=== PATIENT | male | born 1950 | race Caucasian/White ===

== ENCOUNTER 2017-09-28 09:56 | Inpatient (IN) | payer MEDICARE ==
[~2017-09-28 09:56] MED LIST: Iopamidol 370 76% 100 ML VIAL ONE
--- NOTE | 2017-09-28 10:34 | RAD ---
PA AND LATERAL CHEST: Date: 09/28/17 HISTORY: Chest pain and left arm pain. COMPARISON: None available. FINDINGS: The cardiac silhouette and pulmonary vasculature are within normal limits. There is a very tiny nodul ar density seen overlying the left upper lobe, which overlies the anterior left second rib. Lungs are otherwise clear. Osseous structures are intact. IMPRESSION: 1. Very tiny nodular density overlying the left upper lobe. This could be related to focal area of s carring or superimposition of structures. However, follow-up chest x-ray in 3 months is recommended. 2. No acute cardiopulmonary process. POS: [facility]
[2017-09-28 10:44] LABS: #Basophils 0.1 thou/uL (0.0-0.2); #Eosinphils 0.4 thou/uL (0.0-0.7); #Lymphocytes 1.5 thou/uL (1.20-3.40); #Monocytes 0.9 thou/uL (0.11-0.59); %Basophils 0.8 % (0.0-1.0); %Eosinophils 4.4 % (0.0-10.0); %Lymphocytes 15.2 % (21.0-51.0); %Monocytes 8.8 % (0.0-10.0); %Neutrophils 70.8 % (42.0-75.0); Hemoglobin 15.6 g/dL (14.0-18.0); Mean Corpuscular HGB CONC 33.8 g/dL (32.0-36.0); Mean Corpuscular Hemoglobin 33.4 pg (27.0-31.0); Mean Corpuscular Volume 98.8 fl (80.0-94.0); Mean Platelet Volume 7.5 fL (7.4-10.4); Platelet Count 252 thou/uL (130-400); RBC Distribution Width 11.5 % (11.5-14.5); Red Blood Cell (RBC) Count 4.67 mill/uL (4.70-6.10); White Blood Cell (WBC) Count 9.9 thou/uL (4.8-10.8)
[2017-09-28 10:59] LABS: ALT (SGPT) 16 U/L (8-55); AST (SGOT) 17 U/L (5-34); Albumin 4.2 g/dL (3.4-4.8); Alkaline Phosphatase 67 U/L (40-150); Anion Gap 12 mmol/L (10-20); BUN (Urea Nitrogen) 12 mg/dL (8.4-25.7); Bilirubin, Total 0.3 mg/dL (0.2-1.2); CK (CPK) 245 U/L (30-200); Calc. Creatinine Clearance 0 mL/min (70-130); Calcium 9.7 mg/dL (7.8-10.44); Carbon Dioxide 24 mmol/L (23-31); Chloride 108 mmol/L (98-107); Estimated GFR-MDRD 68; Globulin 3.1 g/dL (2.4-3.5); Glucose 148 mg/dL (80-115); Potassium 4.4 mmol/L (3.5-5.1); Protein, Total 7.3 g/dL (5.8-8.1); Sodium 140 mmol/L (136-145)
[2017-09-28 11:09] LABS: CKMB 4.6 ng/mL (0-6.6); Troponin I 0.186 ng/mL (< 0.028)
[2017-09-28 11:41] LABS: Magnesium 2.4 mg/dL (1.6-2.6)
[2017-09-28] MEDS ORDERED: Enoxaparin Sodium 100 MG/ML SYRINGE ONE (12:52)
[2017-09-28] MEDS ORDERED: Nitroglycerin 2% Ointment 1 INCH/1 GM Packet TOP PRN (13:24)
[2017-09-28] MEDS ORDERED: Acetaminophen 325 MG TAB PO PRN (13:24)
[2017-09-28] MEDS ORDERED: Dextrose 50% Abboject 50 ML SYRINGE SLOW IVP PRN (13:26)
[2017-09-28] MEDS ORDERED: HumaLOG 300 UNITS/3 ML VIAL SC PRN (13:26)
[2017-09-28] MEDS ORDERED: Dextrose 5% in Water 1,000 ML IV PRN (13:26)
[2017-09-28 14:26] LABS: CKMB 12.2 ng/mL (0-6.6); Troponin I 1.636 ng/mL (< 0.028)
[2017-09-28] MEDS ORDERED: Nitroglycerin 2% Ointment 1 INCH/1 GM Packet TOP SCH (15:45)
--- NOTE | 2017-09-28 15:48 | HP ---
CHIEF COMPLAINT: Left arm pain. HISTORY OF PRESENT ILLNESS: Patient is a very pleasant 67-year-old male with a history of diabetes w ho presents to the hospital with complaints of left arm pain. Patient states that he woke up this mo rning and had two sips of coffee and started having significant pain on his left arm. The patient st ates that normally he gets aches and pains; however, this pain was very, very different. The patient denies any chest discomfort; however, just felt a little burning, like patient just complained of so me burning-like sensation to the back of throat. Patient states that he did feel a little lightheade d this morning. The patient states that he went to work and just did not feel well. Normally, he do es not go to the doctor. The patient did call his PCP and went to see the PCP. When he was examined by the PCP, she referred him to the ER for further evaluation. The patient also states that he did not sleep well last night because he did have a project that was due today. The patient has never hilliard d a stress test and he has never had a cardiac catheterization. Patient states that he did have an e vent monitor that was placed on him few years back. PAST MEDICAL HISTORY: History of diabetes type 2. PAST SURGICAL HISTORY: Denies any surgical history. FAMILY HISTORY: Mother has hypertension and alive. Father had his first heart attack at the age of 46. He at the age of 77 and had also had a stroke. SOCIAL HISTORY: The patient smokes cigars small about 2-3 daily for the past 10 years. Denies any a lcohol or drug use. ALLERGIES: He has got no known drug allergies. MEDICATIONS: The patient takes Lantus 50 units q.p.m., atorvastatin unknown dose daily and lisinopri l for renal protection. REVIEW OF SYSTEMS: The following complete review of systems was negative, unless otherwise mentioned in the HPI or below: Constitutional: Weight loss or gain, ability to conduct usual activities. Skin: Rash, itching. Eyes: Double vision, pain. ENT/Mouth: Nose bleeding, neck stiffness, pain, tenderness. Cardiovascular: Palpitations, dyspnea on exertion, orthopnea. Respiratory: Shortness of breath, wheezing, cough, hemoptysis, fever or night sweats. Gastrointestinal: Poor appetite, abdominal pain, heartburn, nausea, vomiting, constipation, or diarr hea. Genitourinary: Urgency, frequency, dysuria, nocturia. Musculoskeletal: Pain, swelling. Neurologic/Psychiatric: Anxiety, depression. Allergy/Immunologic: Skin rash, bleeding tendency. All negative except for the ones mentioned in the HPI. LABORATORY DATA AND IMAGING DATA: WBCs of 9.9, hemoglobin of 15.6, hematocrit of 46.1, platelets of 252. Chemistry: Sodium of 140, potassium of 4.4, bicarbonate of 24, BUN of 12, creatinine 1.08. Hi s initial troponin was 0.186. No significant EKG changes. His second troponin went up to 1.63. EKG is still pending right now. Chest x-ray indicated very tiny nodular density over the left upper lob e. However, no other cardiopulmonary process noted. ASSESSMENT AND PLAN: The patient is a very pleasant 67-year-old male who comes to the hospital with complaints of left-sided arm pain. 1. Dqv-CN-ehqmdiu elevation myocardial infarction. The patient does have left-sided arm pain with e levated troponins. We will start patient on aspirin and also Lovenox 1 mg/kg b.i.d., I have already spoken with Dr. Kruse who recommended that if his troponins were to increase, which they did to consul t them for further evaluation. Patient currently does not have a nitropatch on. We will make sure t he patient gets his nitropatch on today. We will check a lipid level in the morning. We will check hemoglobin A1c. The patient has risk factors which including male, age, diabetes, and family history . 2. Diabetes. I will continue half dose of patient's home insulin and currently the patient is n.p.o . 3. Deep venous thrombosis prophylaxis. The patient is already on Lovenox.
[2017-09-28] MEDS ORDERED: Lidocaine 2% Viscous Solution 10 ML, Aluminum & Magnesium Hydroxide 30 ML SSW SCH (16:30)
--- NOTE | 2017-09-28 16:49 | EKG ---
Test Reason : Blood Pressure : / mmHG Vent. Rate : 075 BPM Atrial Rate : 075 BPM P-R Int : 200 ms QRS Dur : 104 ms QT Int : 362 ms P-R-T Axes : 020 033 082 degrees QTc Int : 404 ms Normal sinus rhythm Nonspecific T wave abnormality Abnormal ECG Confirmed by DANNY CRUMP ([id number]) on 09/28/2017 4:49:26 PM Referred By: SHIKHA Confirmed By:DANNY CRUMP
[2017-09-28] MEDS ORDERED: Communication Order-Pharmacy FS SCH (17:00)
[2017-09-28] MEDS ORDERED: Verapamil 5 MG/2 ML VIAL ONE (18:19)
[2017-09-28] MEDS ORDERED: Nitroglycerin 100MG/250ML BOT 250 ML ONE (18:19)
[2017-09-28] MEDS ORDERED: Heparin 10,000 UNITS/1 ML VIAL ONE (18:19)
--- NOTE | 2017-09-28 18:21 | CON ---
DATE OF CONSULTATION: 09/28/2017 INDICATION FOR CONSULTATION: A 67-year-old gentleman who presented with a mgy-XT-pnsijtr-elevation m yocardial infarction. HISTORY OF PRESENT ILLNESS: This is a 67-year-old gentleman who has history of hypertension and diab etes presented to the emergency room after developing arm pain this morning and also burning chest pa in with throat pain, which was burning in nature. The pain at worse was 6/10 at home in the left arm . It is now down to 1/10. His enzymes were abnormal, which shows a troponin I increased from 0.186 to 1.6 with an MB of 4.6, increasing up to 12.2 compatible with a gew-TJ-usrnspg elevation myocardial infarction. He also had associated mild nausea and diaphoresis. The third set of cardiac enzymes i s still pending. He also complained of some mild nausea as well as the diaphoresis when he had the p ain this morning. He has undergone echocardiogram, which shows an ejection fraction of 50% to 55% wi th mild tricuspid valve regurgitation and trace mitral valve regurgitation. Otherwise, everything ap pears to be within normal limits except there was some hypokinesis of the apex. PAST MEDICAL HISTORY: Significant for diabetes, hypercholesterolemia, and hypertension. SOCIAL HISTORY: He is . He has one son with no heart disease. He smokes cigars on a daily basis, which he inhales. He has rare alcohol use. 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 FAMILY HISTORY: His mother had hypertension. Father had heart disease and also had a CVA and a t a relatively young age comparatively speaking, and I believe in his 70s. ALLERGIES: None. MEDICATIONS: Insulin, lisinopril at home. He has also been on statin medications. In the emergency room, he was given Lovenox as well as aspirin. REVIEW OF SYSTEMS: A 12-point review of systems is unremarkable except for what is stated in the his tory of present illness and dry eyes. PHYSICAL EXAMINATION: GENERAL: Reveals a well-developed, well-nourished gentleman who is in no acute distress at this time . He is alert and oriented. VITAL SIGNS: Blood pressure is 142/68, heart rate is 74 and regular, respiratory rate is 18. He is afebrile. O2 saturation is 97%. HEENT: Reveals the head to be normocephalic and atraumatic. NECK: Carotid pulses are present. There were no bruits. No JVD. The thyroid did not appear to be enlarged. Oral mucosa was pink and moist. CHEST: Clear to auscultation without rales, rhonchi, or wheezing. CARDIOVASCULAR: Reveals a regular rate and rhythm at this time with a normal S1 and S2. There were no significant murmurs, heaves, thrills, bruits, or rubs. ABDOMEN: Soft and nontender with positive bowel sounds. EXTREMITIES: Showed no clubbing, cyanosis, or edema. Pedal pulses are present. Popliteal pulses ar e present. Femoral pulses are present as well as radial pulses. NEUROLOGIC: Appears to be intact with no evidence of gross focal motor deficits. He has normal stre ngth and normal tone. Neurologically, he is intact otherwise. SKIN: Warm and dry. PSYCHIATRIC: Psychosocially, he is intact without any indication of any abnormalities. EKG shows a normal sinus rhythm with no acute changes. Chest x-ray shows a very tiny left upper lobe increased density, but no acute changes were noted. IMPRESSION: 1. Whu-NB-fuqqfpk-elevation myocardial infarction. This gentleman has recently been given Lovenox. He will continue on this medication. Tomorrow morning, he will undergo cardiac catheterization unle ss he becomes more urgent tonight and we will continue to monitor the enzymes. If they continue to t rend upwards, I will suggest earlier cardiac catheterization. We will try to do a radial approach si nce he has recently had Lovenox. 2. Hypertension. He will need to resume his lisinopril and perhaps start beta blockers. He has hyp ercholesterolemia. We will continue his medications, at least on the statin medication. We will swi tch him to Lipitor while he is in the hospital. I have explained the procedure for the cardiac desire terization, the indication, and the procedure to include bleeding; infection; possibility of myocardi al infarction, cerebrovascular accident, renal insufficiency, allergic contrast reaction, and even th e possibility of . He understands and again as noted, we will plan for cardiac catheterization either later today or tomorrow.
[2017-09-28] MEDS ORDERED: Aggrastat 12.5 MG/250 ML 250 ML ONE (18:57)
[2017-09-28] MEDS ORDERED: Aggrastat 12.5 MG/250 ML 250 ML IVPB SCH ×2 (19:15→19:26)
[2017-09-28] MEDS ORDERED: Nitroglycerin 0.4 MG TAB (25 Tab Bottle) SL PRN (19:26)
[2017-09-28] MEDS ORDERED: Sodium Chloride 0.9% 200 ML IV SCH (19:26)
[2017-09-28] MEDS ORDERED: Acetaminophen/Codeine 30-300mg Tablet PO PRN ×2 (19:26)
[2017-09-28] MEDS ORDERED: traMADol HCl 50 MG TAB PO PRN (19:26)
[2017-09-28 20:09] LABS: Hemoglobin 14.9 g/dL (14.0-18.0); Platelet Count 275 thou/uL (130-400)
[2017-09-28] MEDS ORDERED: Communication Order-Pharmacy FS ONE (20:38)
[2017-09-28] MEDS ORDERED: Atorvastatin Calcium 40 MG TAB PO SCH (21:00)
[2017-09-28] MEDS ORDERED: Enoxaparin Sodium 100 MG/ML SYRINGE SC SCH (21:00)
[2017-09-28] MEDS ORDERED: INSULIN DETEMIR SC SCH (21:00)
[2017-09-28 21:23] LABS: Hemoglobin A1c 6.6 % (4.0-6.0); INR-International Normal Ratio 1.1; PTT 41.5 SEC (22.9-36.1); Prothrombin Time 14.2 SEC (12.0-14.7)
--- NOTE | 2017-09-28 21:44 | CON ---
DATE OF CONSULTATION: 09/28/2017 REASON FOR CONSULTATION: Evaluate the patient for coronary artery bypass grafting. HISTORY OF PRESENT ILLNESS: Mr. Dixon is a 67-year-old gentleman who was admitted and seen in with chest pain and non-ST elevation myocardial infarction. He has gone to cardiac catheterization reveal ing severe 3-vessel disease. Potential bypassable targets including LAD, diagonal, OM1, OM3 and PDA. On ventriculogram, he has an ejection fraction of approximately 60%. Peak troponin has been 6.1. Peak CK-MB is 12.2. He is currently resting comfortably, chest pain free with no drips on the teleme try unit. PAST MEDICAL HISTORY: 1. Diabetes mellitus - insulin dependent for the last year and half. 2. Hypercholesterolemia. 3. Hypertension. PAST SURGICAL HISTORY: None. SOCIAL HISTORY: He is . He is here with his sister. He smokes cigarettes and cigars on a d aily basis. He rarely uses alcohol. 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 FAMILY HISTORY: Significant for coronary artery disease, cerebrovascular accident, and hypertension. ALLERGIES: None. CURRENT MEDICATIONS: 1. Insulin. 2. Lisinopril. 3. Statin. REVIEW OF SYSTEMS: Ten point review of systems performed and is negative except as above. PHYSICAL EXAMINATION: GENERAL: Well-developed, well-nourished man, resting comfortably in bed. VITAL SIGNS: Height 6 foot 2 inches, weight 211 pounds, BSA is 2.24, temperature is 98.0, pulse is 7 4 and regular, blood pressure is 142/68. HEENT: Sclerae nonicteric. Pupils equal, round bilaterally. NECK: Supple. He has no carotid bruits. CHEST: Clear bilaterally. HEART: Rhythm is regular. ABDOMEN: Soft and nontender. No masses. EXTREMITIES: No cyanosis, clubbing or edema. VASCULAR: Palpable carotid, radial, femoral, dorsalis pedis pulses bilaterally. VENOUS: There are no venous varicosities or venous stasis changes. LYMPHATICS: No lymphedema or lymphadenopathy. LABORATORY DATA: Potassium 4.4, creatinine is 1.08, hemoglobin 14.9, platelet count is 275,000. ASSESSMENT AND PLAN: This is a 67-year-old gentleman with severe 3-vessel disease. Risks, benefits, and options of coronary artery bypass grafting have been discussed with him. He is agreeable to pro ceed tomorrow with coronary bypass grafting.
[2017-09-28] MEDS: Famotidine 40 MG/4 ML VIAL SLOW IVP SCH (21:54)
[2017-09-29] MEDS ORDERED: Dextrose 5 % And 0.9 % NaCl 1,000 ML IV SCH
[2017-09-29 01:26] LABS: Hemoglobin 13.7 g/dL (14.0-18.0); Platelet Count 250 thou/uL (130-400)
[2017-09-29] MEDS ORDERED: CEFAZOLIN/Water 2 GM/20 ML SYRINGE SLOW IVP SCH (03:30)
[2017-09-29 06:15] LABS: #Basophils 0.1 thou/uL (0.0-0.2); #Eosinphils 0.5 thou/uL (0.0-0.7); #Lymphocytes 2.7 thou/uL (1.20-3.40); %Basophils 0.6 % (0.0-1.0); %Eosinophils 4.6 % (0.0-10.0); %Lymphocytes 26.5 % (21.0-51.0); %Monocytes 9.4 % (0.0-10.0); %Neutrophils 58.9 % (42.0-75.0); Hemoglobin 13.9 g/dL (14.0-18.0); Mean Corpuscular HGB CONC 35.4 g/dL (32.0-36.0); Mean Corpuscular Hemoglobin 34.3 pg (27.0-31.0); Mean Corpuscular Volume 96.8 fl (80.0-94.0); Mean Platelet Volume 6.7 fL (7.4-10.4); Platelet Count 236 thou/uL (130-400); RBC Distribution Width 11.5 % (11.5-14.5); Red Blood Cell (RBC) Count 4.07 mill/uL (4.70-6.10); White Blood Cell (WBC) Count 10.1 thou/uL (4.8-10.8)
[2017-09-29 06:40] LABS: Anion Gap 7 mmol/L (10-20); BUN (Urea Nitrogen) 11 mg/dL (8.4-25.7); Calc. Creatinine Clearance 98 mL/min (70-130); Calcium 8.2 mg/dL (7.8-10.44); Carbon Dioxide 26 mmol/L (23-31); Chloride 110 mmol/L (98-107); Estimated GFR-MDRD 75; Glucose 145 mg/dL (80-115); Potassium 4.4 mmol/L (3.5-5.1); Sodium 139 mmol/L (136-145)
[2017-09-29] MEDS ORDERED: Heparin 10,000 UNITS/1 ML VIAL 30,000 UNITS, Admixture Fee 1 EACH in Sodium Chloride 0.... IVPB SCH (08:00)
[2017-09-29] MEDS ORDERED: Aspirin 325 MG TAB PO SCH (09:00)
[2017-09-29 09:41] LABS: CKMB 11.1 ng/mL (0-6.6); Troponin I 3.915 ng/mL (< 0.028)
[2017-09-29] MEDS ORDERED: CEFAZOLIN/Water 2 GM/20 ML SYRINGE ONE (10:39)
[2017-09-29] MEDS ORDERED: Midazolam HCl 5 mg/5 ml Vial ONE (11:19)
[2017-09-29] MEDS ORDERED: Fentanyl 250 MCG/5 ML VIAL ONE ×3 (11:19→12:35)
--- NOTE | 2017-09-29 11:35 | PDOC.PN ---
- Subjective Encounter Start Date: 09/29/17 Encounter Start Time: 09:00 Subjective: pt up in bed no pain in his left arm or chest - Objective Vital Signs & Weight: Vital Signs (12 hours) Temp Pulse Resp BP Pulse Ox 09/29/17 08:06 97.9 F 78 18 97 09/29/17 08:03 97.9 F 78 18 135/65 97 09/29/17 04:03 98.1 F 74 18 133/61 97 I&O: 09/28/17 09/29/17 09/30/17 06:59 06:59 06:59 Intake Total 1413 Balance 1413 Result Diagrams: 09/30/17 04:15 09/30/17 04:15 Additional Labs: Accuchecks 09/28/17 20:35 POC Glucose 149 H Phys Exam - Physical Examination HEENT: PERRLA, moist MMs, sclera anicteric, TM's clear, oral pharynx no lesions , 2+ tonsils Neck: no nodes, no JVD, supple, full ROM Respiratory: no wheezing, no rales, no rhonchi, wheezing present, clear to auscultation bilateral Cardiovascular: RRR, no significant murmur, no rub, gallop, irregular Gastrointestinal: soft, non-tender, no distention, positive bowel sounds Musculoskeletal: no edema, pulses present, edema present Neurological: non-focal, normal sensation, moves all 4 limbs Dx/Plan - Plan 1) CAD 2) NSTEMI 3) elevated trops 4) DM type 2 plan: pt s/p cardiac cath 3 vessel disease going for CABG. Pt on statin. Pt will be going to ccu post CABG. hbg alc is 6.6. * . Review of Systems - Review of Systems Eyes: negative: Pain, Vision Change, Conjunctivae Inflammation, Eyelid Inflammation, Redness, Other ENT: negative: Ear Pain, Ear Discharge, Nose Pain, Nose Discharge, Nose Congestion, Mouth Pain, Mouth Swelling, Throat Pain, Throat Swelling, Other Respiratory: negative: Cough, Dry, Shortness of Breath, Hemoptysis, SOB with Excertion, Pleuritic Pain, Sputum, Wheezing Cardiovascular: negative: chest pain, palpitations, orthopnea, paroxysmal nocturnal dyspnea, edema, light headedness, other Gastrointestinal: negative: Nausea, Vomiting, Abdominal Pain, Diarrhea, Constipation, Melena, Hematochezia, Other Genitourinary: negative: Dysuria, Frequency, Incontinence, Hematuria, Retention , Other Musculoskeletal: negative: Neck Pain, Shoulder Pain, Arm Pain, Back Pain, Hand Pain, Leg Pain, Foot Pain, Other - Medications/Allergies Allergies/Adverse Reactions: Allergies Allergy/AdvReac Type Severity Reaction Status Date / Time No Known Allergies Allergy Unverified 09/28/17 15:28 Medications: Current Medications Cefazolin Sodium (Ancef) 2 gm SLOW IVP ONCALL-OR KEVIN Stop: 09/29/17 19:00 Heparin Sodium (Porcine) 30, 000 units/ Miscellaneous Medication 1 each/ Sodium Chloride 1,003 mls @ 0 mls/hr IVPB .Q0M COUNTS INCLUDE 234 BEDS AT THE [facility] Sodium Chloride (Flush - Normal Saline) 10 ml IVF Q12HR COUNTS INCLUDE 234 BEDS AT THE [facility] Last Admin: 09/29/17 09:07 Dose: Not Given Sodium Chloride (Flush - Normal Saline) 10 ml IVF PRN PRN PRN Reason: Saline Flush
[2017-09-29] MEDS ORDERED: Vecuronium 10 MG VIAL ONE ×2 (13:10→15:42)
[2017-09-29] MEDS ORDERED: Papaverine 60 MG/2 ML VIAL ONE (15:42)
[2017-09-29] MEDS ORDERED: Heparin 5,000 UNITS/ML VIAL ONE (15:42)
[2017-09-29] MEDS ORDERED: Potassium Chloride 60 MEQ/30 ML VIAL ONE (15:42)
[2017-09-29] MEDS ORDERED: Magnesium 5 GM/10 ML VIAL ONE (15:42)
[2017-09-29] MEDS ORDERED: Cardioplegic Soln 1,000 ML BAG ONE (15:42)
[2017-09-29] MEDS ORDERED: Albumin 25% 25 GM/100 ML BOT ONE (15:42)
[2017-09-29] MEDS ORDERED: Protamine Sulfate 250 MG/25 ML VIAL ONE (15:42)
[2017-09-29] MEDS ORDERED: Aminocaproic Acid 5 GM/20 ML VIAL ONE (15:42)
[2017-09-29] MEDS ORDERED: Succinylcholine Chloride 20 MG/ML 10 ml SYRINGE FS ONE (15:42)
[2017-09-29] MEDS ORDERED: Heparin 30,000 units/30 ml VIAL ONE (15:42)
[2017-09-29] MEDS ORDERED: PROPOFOL 200 MG/20 ML VIAL ONE (15:42)
[2017-09-29] MEDS ORDERED: Calcium Chloride 1 GM/10 ML Abboject SYRINGE ONE (15:42)
[2017-09-29] MEDS ORDERED: Thrombin 5000 UNITS/5 ML VIAL ONE (15:42)
[2017-09-29] MEDS ORDERED: PHENYLEPHRINE-NS 100 MCG/ML 10 ML SYRINGE ONE (15:42)
[2017-09-29] MEDS ORDERED: Sodium Bicarb 50 MEQ/50 ML VIAL ONE (15:42)
[2017-09-29] MEDS ORDERED: Lidocaine 2% PF 100 mg/5 ml Syringe ONE (15:42)
[2017-09-29 16:44] LABS: Actual Bicarbonate (HCO3a) 23.2 mEq/L (22-26); Base Excess (BEa) -2.2 mEq/L (0 (+/-) 2.5); CO2 Tension 42.1 mmHg (35.0-45.0); O2 Tension (PaO2) 108.6 mmHg (80.0-100.0); pH, Arterial 7.36 (7.35-7.45)
[2017-09-29] MEDS ORDERED: Promethazine HCl 25 MG/ML VIAL IM PRN (16:44)
[2017-09-29] MEDS ORDERED: Nitroglycerin 50 MG/250 ML BOT 250 ML IVPB PRN (16:44)
[2017-09-29] MEDS ORDERED: Post-Op Insulin Drip Protocol IVPB ONE (16:44)
[2017-09-29] MEDS ORDERED: Norepinephrine 8 MG/0.9% NS 250 ML IVPB PRN (16:44)
[2017-09-29] MEDS ORDERED: Fentanyl 100 MCG/2 ML VIAL SLOW IVP PRN (16:44)
[2017-09-29] MEDS ORDERED: Ondansetron HCl/PF 4 MG/2 ML Vial IVP PRN (16:44)
[2017-09-29] MEDS ORDERED: Acetaminophen 325 MG TAB PO PRN (16:44)
[2017-09-29] MEDS ORDERED: Guaifenesin DM 100-10/5 ML UDCUP PO PRN (16:44)
[2017-09-29] MEDS ORDERED: Magnesium 2 GM/NS 0.9% 100 ML 2 GM in Premix Bag 1 BAG IVPB SCH ×2 (16:44→17:30)
[2017-09-29] MEDS ORDERED: Mag-Al 1200 mg/1200 mg/30 ML UDCUP PO PRN (16:44)
[2017-09-29] MEDS ORDERED: hydrALAZINE 20 MG/ML VIAL SLOW IVP PRN (16:44)
[2017-09-29] MEDS ORDERED: HYDROcodone/Acetaminophen 5/325 mg Tablet PO PRN ×2 (16:44)
[2017-09-29] MEDS ORDERED: Hetastarch 6% 500 ML 500 ML IVPB PRN (16:44)
[2017-09-29] MEDS ORDERED: Bisacodyl 10 MG SUPP PR PRN (16:44)
[2017-09-29] MEDS ORDERED: Bisacodyl 5 MG TAB PO PRN (16:44)
[2017-09-29] MEDS ORDERED: Potassium Chloride 20 MEQ/100 ML PREMIX BAG IVPB PRN (16:44)
[2017-09-29] MEDS ORDERED: Nitroglycerin 50 MG/250 ML BOT 250 ML ONE (16:44)
[2017-09-29] MEDS ORDERED: Morphine 4 MG/ML VIAL SLOW IVP PRN (16:44)
[2017-09-29 16:45] LABS: ALV-art Gradient 266.575 (0-20); Calcium, Ionized 1.1 mmol/L (1.12-1.30); Puncture Site LINE
[2017-09-29] MEDS: D5 1/2 NS w/20 mEq KCL 1,000 ML IV SCH (17:07)
[2017-09-29] MEDS ORDERED: Dextrose 50% Abboject 50 ML SYRINGE SLOW IVP PRN (17:11)
[2017-09-29] MEDS ORDERED: Dextrose 5% in Water 1,000 ML IV PRN (17:11)
--- NOTE | 2017-09-29 17:18 | OP ---
DATE OF PROCEDURE: 09/29/2017 PREOPERATIVE DIAGNOSES: Coronary disease/diabetes mellitus/hypertension/hyperlipidemia. POSTOPERATIVE DIAGNOSES: Coronary disease/diabetes mellitus/hypertension/hyperlipidemia. PROCEDURES: Coronary artery bypass grafting x4 1. Left internal mammary artery to 1.25 mm distal LAD -- good conduit and target. 2. Reverse saphenous vein to 1.5 mm diagonal -- good conduit target. 3. Reverse saphenous vein in sequence to 1.25 mm PDA and 1.5 mm OM3 -- good conduit and target. SURGEON: José Miguel Nieves M.D. ANESTHESIA: General endotracheal, Dr. Barber Mar. PUMP TIME: 79 minutes. CROSS-CLAMP TIME: 49 minutes. LOW CORE TEMP: 32-degree Celsius. CREDIT CARD ANALYST: Magalis. DRAINS: 24-Portuguese chest tubes x2. DRIPS: None. TRANSFUSIONS: None. PROCEDURE IN DETAIL: After operative consent was obtained, the patient was brought to the operating room and placed in the supine position on the operating room table. Appropriate anesthetic monitor w as placed and general endotracheal anesthesia induced. Chest, abdomen, and legs were prepped and jaelyn ped in usual sterile fashion. Greater saphenous vein was harvested to the left lower extremity utili zing an endoscopic technique from groin to foot. Wounds were irrigated, closed in layers. Median st ernotomy was performed. Left internal mammary artery was harvested as a pedicle graft. The patient was systemically heparinized. Distal pedicle was divided and infused with papaverine. Thymic fat an d pericardium were divided with electrocautery. Pericardial stay sutures were placed. Aortic and at rial cannulation was performed. After adequate heparinization, retrograde prime was performed. The patient was placed on cardiopulmonary bypass. Distal targets were marked. Aortic cross-clamp was ap plied and antegrade sanguinous cardioplegic arrest obtained. One liter of antegrade cold cardioplegi a was given. Topical cold solution was used. Reverse saphenous vein was anastomosed in [id number] fashion, followed by end-to-side fashion with PDA and OM3. This was a sequential graft. Anastomose s were inspected for hemostasis, which was good. Reversed saphenous vein was anastomosed to the diag onal in end-to-side fashion with running 7-0 Prolene suture. Anastomosis was tested and was hemostat ic. The first OM was explored and was too small for bypass. Mammary artery was brought through a wi ndow in the pericardium and anastomosed the distal LAD in end-to-side fashion with running 7-0 Prolen e suture. On release, mammary clamps good hooding in the anastomosis and good distal flow. Pedicle screw with interrupted 6-0 Prolene suture. Cross-clamp was removed and partial occluding clamp place d. Saphenous veins were anastomosed individual punch sites with running 6-0 Prolene suture. Partial occluding clamp was removed and grafts deaired. Anastomoses were inspected for hemostasis, which wa s good. The patient was warmed and weaned from cardiopulmonary bypass. After resumption of sinus rh ythm, became nervous, and temperature greater than 36.5, bypass was discontinued. Transfusions were given. Protamine was administered. Decannulation was performed and pursestring sutures secured. Tw enty-four Portuguese chest tubes were placed in the mediastinum. After adequate hemostasis had been obta ined, sternum was treated with vancomycin paste. Sternum was closed with #7 wire. Sternum was treat ed with platelet-rich plasma and wires twisted. Wounds were irrigated, treated with platelet-poor pl asma, and closed in multiple layers. The patient tolerated the procedure well, and was transferred t o the intensive care unit in stable, but critical condition. Needle, sponge, and instrument counts w ere all reported correct at the end of the procedure.
--- NOTE | 2017-09-29 17:24 | RAD ---
ONE VIEW CHEST: 09/29/17 HISTORY: Status post open heart surgery. COMPARISON: 09/28/17. FINDINGS: Portable supine chest radiograph demonstrates an endotracheal tube at the level of the clavicles. The re are sternotomy wires. Right sided central venous catheter is noted. Left sided chest tube was iden tified. There is evidence of pneumopericardium. Parenchymal changes in the left lung base are noted. No pneumothorax. IMPRESSION: Findings compatible with recent open heart surgery. POS: [facility]
[2017-09-29 17:30] LABS: #Basophils 0.1 thou/uL (0.0-0.2); #Eosinphils 0.2 thou/uL (0.0-0.7); #Lymphocytes 1.4 thou/uL (1.20-3.40); #Monocytes 1.9 thou/uL (0.11-0.59); #Neutrophils 15.6 thou/uL (1.40-6.50); %Basophils 0.4 % (0.0-1.0); %Eosinophils 0.9 % (0.0-10.0); %Lymphocytes 7.3 % (21.0-51.0); %Monocytes 9.9 % (0.0-10.0); %Neutrophils 81.6 % (42.0-75.0); Hemoglobin 12.5 g/dL (14.0-18.0); Mean Corpuscular Hemoglobin 33.3 pg (27.0-31.0); Mean Corpuscular Volume 97.7 fl (80.0-94.0); Mean Platelet Volume 6.9 fL (7.4-10.4); Platelet Count 174 thou/uL (130-400); RBC Distribution Width 11.4 % (11.5-14.5); Red Blood Cell (RBC) Count 3.76 mill/uL (4.70-6.10); White Blood Cell (WBC) Count 19.1 thou/uL (4.8-10.8)
[2017-09-29 17:34] LABS: Anion Gap 11 mmol/L (10-20); BUN (Urea Nitrogen) 9 mg/dL (8.4-25.7); Calc. Creatinine Clearance 121 mL/min (70-130); Calcium 7.2 mg/dL (7.8-10.44); Carbon Dioxide 21 mmol/L (23-31); Chloride 110 mmol/L (98-107); Estimated GFR-MDRD Greater than 90; Glucose 178 mg/dL (80-115); Potassium 3.9 mmol/L (3.5-5.1); Sodium 138 mmol/L (136-145)
[2017-09-29 17:37] LABS: INR-International Normal Ratio 1.3; PTT 26.3 SEC (22.9-36.1); Prothrombin Time 16.2 SEC (12.0-14.7)
[2017-09-29] MEDS: Ketorolac Tromethamine 30 MG/ML VIAL IVP SCH (18:28)
[2017-09-29 20:12] LABS: Actual Bicarbonate (HCO3a) 20.2 mEq/L (22-26); Base Excess (BEa) -3.6 mEq/L (0 (+/-) 2.5); Hematocrit-ABG 36.8 % (42.0-52.0); Hemoglobin (Hb) 12.4 g/dL (14.0-18.0); O2 Tension (PaO2) 81.4 mmHg (80.0-100.0); pH, Arterial 7.41 (7.35-7.45)
[2017-09-29 20:13] LABS: Calcium, Ionized 1.1 mmol/L (1.12-1.30); Puncture Site LINE
[2017-09-29] MEDS: CEFAZOLIN/Water 2 GM/20 ML SYRINGE SLOW IVP SCH (20:15)
[2017-09-29] MEDS: Famotidine 40 MG/4 ML VIAL SLOW IVP SCH (20:57)
[2017-09-29] MEDS ORDERED: Famotidine/PF 20 mg/2ml Vial SLOW IVP SCH (21:00)
[2017-09-29] MEDS ORDERED: Artificial Tear Sol 15 ML BOT EA EYE PRN (21:35)
[2017-09-29 22:23] LABS: Potassium 3.9 mmol/L (3.5-5.1)
[2017-09-30] MEDS: Fentanyl 100 MCG/2 ML VIAL SLOW IVP PRN ×2 (00:02→02:25)
[2017-09-30] MEDS: CEFAZOLIN/Water 2 GM/20 ML SYRINGE SLOW IVP SCH ×2 (03:56→12:05)
[2017-09-30 04:30] LABS: #Eosinphils 0.1 thou/uL (0.0-0.7); #Lymphocytes 1.5 thou/uL (1.20-3.40); #Monocytes 1.1 thou/uL (0.11-0.59); #Neutrophils 8.8 thou/uL (1.40-6.50); %Basophils 0.1 % (0.0-1.0); %Eosinophils 0.5 % (0.0-10.0); %Lymphocytes 13.3 % (21.0-51.0); %Monocytes 9.6 % (0.0-10.0); %Neutrophils 76.6 % (42.0-75.0); Hemoglobin 11.2 g/dL (14.0-18.0); Mean Corpuscular HGB CONC 35.4 g/dL (32.0-36.0); Mean Corpuscular Hemoglobin 34.4 pg (27.0-31.0); Mean Corpuscular Volume 97.3 fl (80.0-94.0); Mean Platelet Volume 7.1 fL (7.4-10.4); Platelet Count 175 thou/uL (130-400); RBC Distribution Width 11.3 % (11.5-14.5); Red Blood Cell (RBC) Count 3.26 mill/uL (4.70-6.10); White Blood Cell (WBC) Count 11.5 thou/uL (4.8-10.8)
[2017-09-30 04:46] LABS: Anion Gap 8 mmol/L (10-20); BUN (Urea Nitrogen) 11 mg/dL (8.4-25.7); Calc. Creatinine Clearance 101 mL/min (70-130); Calcium 7.4 mg/dL (7.8-10.44); Carbon Dioxide 25 mmol/L (23-31); Chloride 110 mmol/L (98-107); Estimated GFR-MDRD 78; Glucose 140 mg/dL (80-115); Potassium 4.2 mmol/L (3.5-5.1); Sodium 139 mmol/L (136-145)
[2017-09-30] MEDS: Ketorolac Tromethamine 30 MG/ML VIAL IVP SCH ×5 (05:57→23:50)
[2017-09-30 07:12] VITALS: BMI 27.5
[2017-09-30] MEDS ORDERED: Sodium Chloride 0.9% 250 ML 250 ML IVPB SCH (07:30)
[2017-09-30] MEDS ORDERED: Magnesium 2 GM/NS 0.9% 100 ML 2 GM in Premix Bag 1 BAG IVPB SCH (09:00)
[2017-09-30] MEDS ORDERED: Insulin Detemir 100 UNITS/ML 12 UNITS in Pre-Filled Syringe 1 EACH SC SCH (09:15)
[2017-09-30] MEDS: Aspirin 325 MG TAB PO SCH (09:27)
--- NOTE | 2017-09-30 09:28 | RAD ---
PORTABLE AP CHEST: Date: 09/30/17 HISTORY: Post open heart surgery. COMPARISON: 09/29/17. FINDINGS: The endotracheal tube has been removed. Right subclavian central venous catheter and left-sided thora costomy tube are unchanged in position. There is volume loss present at each lung base, greater on th e left. Pulmonary vasculature is within normal limits. Osseous structures are intact. IMPRESSION: 1. Interval removal of endotracheal tube. 2. Bibasilar atelectasis, greater on the left. 3. Remaining lines and tubes stable in position. POS: [facility]
[2017-09-30] MEDS: Famotidine 40 MG/4 ML VIAL SLOW IVP SCH ×3 (10:32→20:46)
--- NOTE | 2017-09-30 13:23 | PDOC.PN ---
- Subjective Encounter Start Date: 09/30/17 Encounter Start Time: 12:30 Subjective: pt up in chair has pain to his left chest area - Objective Vital Signs & Weight: Vital Signs (12 hours) Temp Pulse Resp Pulse Ox 09/30/17 08:00 98.0 F 85 20 95 09/30/17 04:00 98.2 F Weight Weight 214 lb 4.629 oz Most Recent Monitor Data Heart Rate from ECG 85 NIBP 106/49 NIBP BP-Mean 86 Respiration from ECG 19 SpO2 96 I&O: 09/29/17 09/30/17 10/01/17 06:59 06:59 06:59 Intake Total 2852.4 Output Total 1201 325 Balance 1651.4 -325 Result Diagrams: 09/30/17 04:15 09/30/17 04:15 Additional Labs: Accuchecks 09/30/17 09/30/17 09/30/17 05:51 04:54 04:18 POC Glucose 127 H 137 H 160 H 09/30/17 09/30/17 09/30/17 03:05 02:05 01:03 POC Glucose 139 H 137 H 140 H 09/29/17 09/29/17 09/29/17 23:57 23:00 22:03 POC Glucose 124 H 117 H 147 H 09/29/17 09/29/17 09/29/17 20:56 19:52 18:37 POC Glucose 190 H 208 H 201 H 09/29/17 09/29/17 09/29/17 16:51 16:07 15:21 POC Glucose 178 H 182 H 205 H 09/29/17 09/29/17 09/29/17 14:50 14:23 13:45 POC Glucose 171 H 141 H 133 H 09/29/17 10:37 POC Glucose 156 H Phys Exam - Physical Examination HEENT: PERRLA, moist MMs, sclera anicteric, TM's clear, oral pharynx no lesions , 2+ tonsils Neck: no nodes, no JVD, supple, full ROM Respiratory: no wheezing, no rales, no rhonchi, wheezing present, clear to auscultation bilateral left side chest tube Cardiovascular: RRR, no significant murmur, no rub, gallop, irregular Gastrointestinal: soft, non-tender, no distention, positive bowel sounds Musculoskeletal: no edema, pulses present, edema present Dx/Plan - Plan 1) CAD 2) NSTEMI 3) elevated trops 4) DM type 2 plan: s/p CABG, doing well. continue asa and statin. Pt on home dose insulin. * . Review of Systems - Review of Systems ENT: negative: Ear Pain, Ear Discharge, Nose Pain, Nose Discharge, Nose Congestion, Mouth Pain, Mouth Swelling, Throat Pain, Throat Swelling, Other Cardiovascular: other (mild soreness of chest) Gastrointestinal: negative: Nausea, Vomiting, Abdominal Pain, Diarrhea, Constipation, Melena, Hematochezia, Other Genitourinary: negative: Dysuria, Frequency, Incontinence, Hematuria, Retention , Other Musculoskeletal: negative: Neck Pain, Shoulder Pain, Arm Pain, Back Pain, Hand Pain, Leg Pain, Foot Pain, Other - Medications/Allergies Allergies/Adverse Reactions: Allergies Allergy/AdvReac Type Severity Reaction Status Date / Time No Known Allergies Allergy Unverified 09/28/17 15:28 Medications: Current Medications Acetaminophen (Tylenol) 650 mg PO Q6H PRN PRN Reason: Headache/Fever Or Mild Pain Hydrocodone Bitart/Acetaminophen ([place] 5/325) 1 tab PO Q4H PRN PRN Reason: Moderate Pain (4-6) Hydrocodone Bitart/Acetaminophen ([place] 5/325) 2 tab PO Q4H PRN PRN Reason: Severe Pain (7-10) Last Admin: 09/30/17 04:05 Dose: 2 tab Al Hydroxide/Mg Hydroxide (Maalox) 30 ml PO Q4H PRN PRN Reason: Indigestion Albumin Human (Albumin 5%) 12.5 gm IVPB Q6H PRN PRN Reason: To Maintain SBP> 90 mmHG Stop: 09/30/17 16:45 Last Admin: 09/29/17 20:15 Dose: 12.5 gm Albumin Human (Albumin 5%) 25 gm IVPB Q6H PRN PRN Reason: To Maintain SBP > 90 mmHG Stop: 09/30/17 16:45 Last Admin: 09/30/17 08:30 Dose: 25 gm Albuterol/Ipratropium (Duoneb) 3 ml NEB [id number] PRN PRN Reason: SHORTNESS OF BREATH Artificial Tears (Tears Renewed 15ml Bottle) 0 drop EA EYE ASDIR PRN PRN Reason: Dry Eyes Last Admin: 09/29/17 22:12 Dose: 1 drop Aspirin (Aspirin) 325 mg PO DAILY [facility] Last Admin: 09/30/17 09:27 Dose: 325 mg Bisacodyl (Dulcolax) 10 mg PO Q12H PRN PRN Reason: Constipation Bisacodyl (Dulcolax) 10 mg WI Q12H PRN PRN Reason: Constipation Dextrose/Water (Dextrose 50%) 25 gm SLOW IVP PRN PRN PRN Reason: PER HYPOGLYCEMIC PROTOCOL Famotidine (Pepcid) 20 mg SLOW IVP Q12HR [facility] Last Admin: 09/30/17 10:33 Dose: Not Given Fentanyl (Sublimaze) 25 mcg SLOW IVP Q2H PRN PRN Reason: Moderate Pain (4-6) Stop: 10/01/17 16:08 Last Admin: 09/29/17 22:11 Dose: 25 mcg Fentanyl (Sublimaze) 50 mcg SLOW IVP Q2H PRN PRN Reason: Severe Pain (7-10) Stop: 10/01/17 16:08 Last Admin: 09/30/17 02:25 Dose: 50 mcg Glucagon (Glucagon) 1 mg SC PRN PRN PRN Reason: PER HYPOGLYCEMIC PROTOCOL Guaifenesin/Dextromethorphan (Robitussin Dm) 15 ml PO Q4H PRN PRN Reason: Cough Hydralazine HCl (Apresoline) 10 mg SLOW IVP Q6H PRN PRN Reason: To Maintain SBP< 140mmHG Potassium Chloride/Dextrose/Sod Cl (D5 1/2 Ns W/20 Meq Kcl) 1,000 mls @ 40 mls/ hr IV .Q24H [facility] Last Admin: 09/29/17 17:07 Dose: 1,000 mls Hetastarch/Sodium Chloride (Hespan) 500 mls @ 0 mls/hr IVPB PRN PRN; As Directed PRN Reason: To Maintain SBP > 90mmHg Stop: 09/30/17 16:08 Norepinephrine Bitartrate (Levophed) 250 mls @ 0 mls/hr IVPB PRN PRN; Protocol ; Titrate PRN Reason: To maintain SBP > 90 mmHG Nitroglycerin/Dextrose (Nitroglycerin 50 Mg/250 Ml Bot) 250 mls @ 0 mls/hr IVPB PRN PRN; Protocol; Titrate PRN Reason: To Maintain SBP< 140mmHG Insulin Human Regular 100 (units/ Sodium Chloride) 101 mls @ 0 mls/hr IVPB INF KEVIN; As Directed PRN Reason: Protocol Stop: 09/30/17 15:00 Last Admin: 09/29/17 17:33 Dose: 101 mls Dextrose/Water (D5w) 1,000 mls @ 0 mls/hr IV INF PRN; As Directed PRN Reason: PRN HYPOGLYCEMIC PROTOCOL Magnesium Sulfate 1 gm/ Sodium (Chloride) 52 mls @ 104 mls/hr IVPB QAM [facility] Stop: 10/02/17 09:29 Last Admin: 09/30/17 09:27 Dose: 52 mls Potassium Chloride 20 meq/ (Sodium Chloride) 110 mls @ 55 mls/hr IVPB PRN PRN PRN Reason: K LEVEL </=4.0 Last Admin: 09/29/17 21:09 Dose: 110 mls Insulin Human Regular (Humulin R) 0 units SC Q4H PRN; Protocol PRN Reason: POST OP SLIDING SCALE Ketorolac Tromethamine (Toradol) 30 mg IVP Q6HR [facility] Stop: 10/02/17 18:01 Last Admin: 09/30/17 12:05 Dose: 30 mg Ondansetron HCl (Zofran) 4 mg IVP Q6H PRN PRN Reason: Nausea/Vomiting Promethazine HCl (Phenergan) 6.25 mg IM Q4H PRN PRN Reason: Nausea/Vomiting Sodium Chloride (Flush - Normal Saline) 10 ml IVF Q12HR [facility] Last Admin: 09/30/17 09:27 Dose: 10 ml
--- NOTE | 2017-09-30 16:16 | EKG ---
Test Reason : Blood Pressure : / mmHG Vent. Rate : 094 BPM Atrial Rate : 094 BPM P-R Int : 204 ms QRS Dur : 122 ms QT Int : 392 ms P-R-T Axes : 043 023 077 degrees QTc Int : 490 ms Normal sinus rhythm Non-specific intra-ventricular conduction delay Abnormal ECG Confirmed by DANNY CRUMP ([id number]) on 09/30/2017 4:15:34 PM Referred By: MONIQUE Confirmed By:DANNY CRUMP
--- NOTE | 2017-09-30 18:16 | CON ---
DATE OF CONSULTATION: 09/30/2017 HISTORY OF PRESENT ILLNESS: Mr. Dixon is a 67-year-old male. He has undergone coronary artery bypa ss grafting with a PATEL to his LAD, a saphenous vein to his diagonal, and a saphenous vein to his PDA and to OM3. He is a little lightheaded this morning and is receiving a fluid bolus when I evaluated him. Other than that, he said he had no chest or leg discomfort. PAST MEDICAL HISTORY: Remarkable for, 1. Diabetes. 2. History of liver disorder. 3. Hypertension. SOCIAL HISTORY: He smoked cigars, which he inhales like cigarettes. He is not a daily drinker. He is not . He has a son. FAMILY HISTORY: There is no family history of lung disease in an early age. He has a history of vas cular disease and hypertension. ALLERGIES: He reports no drug allergies. MEDICATIONS: Prior to admission, he was on an LUIS inhibitor, insulin, and a statin. REVIEW OF SYSTEMS: Twelve-point review of systems is otherwise negative. PHYSICAL EXAMINATION: GENERAL: He is in no distress. VITAL SIGNS: Heart rate is 83, blood pressure 103/45, respiratory rate is 20, oximetry is 95. HEENT: Pupils are equal. Sclerae are anicteric. NECK: Supple, no lymphadenopathy. Trachea is midline. LUNGS: Clear anteriorly. HEART: Regular rhythm. S1 and S2 are normal. ABDOMEN: Soft and nontender. EXTREMITIES: Without clubbing, cyanosis, or edema. LABORATORY AND X-RAY FINDINGS: Chest radiograph shows no alveolar infiltrates. He has atelectatic c hanges at both bases. White count 11.5, hemoglobin 11.2, platelets 175. Sodium 139, potassium 4.2, chloride 110, bicarbonate 25, BUN 11, creatinine 0.9. IMPRESSION: Status post coronary artery bypass grafting, mild intravascular volume depletion, respon ding to IV fluids, clinically stable at this point in time. There are no acute pulmonary or critical care issues. I will be happy to follow with the other physicians caring for him in the postoperativ e period. He does not have any clinical exam findings suggestive that he is dealing with chronic obs tructive pulmonary disease or asthma. This is a 70 minute consult, greater than 50% of the time was spent in coordinating care.
[2017-09-30] MEDS ORDERED: traMADol HCl 50 MG TAB PO PRN (20:03)
[2017-09-30] MEDS: Zolpidem Tartrate 5 MG TAB PO PRN (20:45)
[2017-09-30] MEDS: D5 1/2 NS w/20 mEq KCL 1,000 ML IV SCH (20:49)
[2017-09-30] MEDS: Insulin Regular 300 UNITS/3 ML VIAL SC PRN (20:57)
[2017-10-01 04:40] LABS: #Eosinphils 0.2 thou/uL (0.0-0.7); #Lymphocytes 1.9 thou/uL (1.20-3.40); #Monocytes 1.3 thou/uL (0.11-0.59); %Basophils 0.4 % (0.0-1.0); %Eosinophils 1.8 % (0.0-10.0); %Lymphocytes 16.5 % (21.0-51.0); %Monocytes 11.6 % (0.0-10.0); %Neutrophils 69.6 % (42.0-75.0); Hemoglobin 10.7 g/dL (14.0-18.0); Mean Corpuscular HGB CONC 35.5 g/dL (32.0-36.0); Mean Corpuscular Volume 98.5 fl (80.0-94.0); Mean Platelet Volume 7.6 fL (7.4-10.4); Platelet Count 156 thou/uL (130-400); RBC Distribution Width 11.5 % (11.5-14.5); Red Blood Cell (RBC) Count 3.07 mill/uL (4.70-6.10); White Blood Cell (WBC) Count 11.5 thou/uL (4.8-10.8)
[2017-10-01 05:05] LABS: Anion Gap 7 mmol/L (10-20); BUN (Urea Nitrogen) 14 mg/dL (8.4-25.7); Calc. Creatinine Clearance 106 mL/min (70-130); Calcium 7.7 mg/dL (7.8-10.44); Carbon Dioxide 24 mmol/L (23-31); Chloride 109 mmol/L (98-107); Estimated GFR-MDRD 81; Glucose 112 mg/dL (80-115); Potassium 3.8 mmol/L (3.5-5.1); Sodium 136 mmol/L (136-145)
[2017-10-01] MEDS: Ketorolac Tromethamine 30 MG/ML VIAL IVP SCH ×4 (05:06→23:56)
[2017-10-01] MEDS ORDERED: Potassium Chloride 20 MEQ in Premix Bag 1 BAG IVPB PRN (05:23)
[2017-10-01] MEDS: Aspirin 325 MG TAB PO SCH (07:39)
[2017-10-01] MEDS: Insulin Regular 300 UNITS/3 ML VIAL SC PRN ×2 (07:39→12:06)
[2017-10-01] MEDS: Famotidine 40 MG/4 ML VIAL SLOW IVP SCH (07:44)
--- NOTE | 2017-10-01 08:19 | RAD ---
PORTABLE CHEST: Date: 10/01/17 HISTORY: Respiratory distress. COMPARISON: Prior day's study. FINDINGS: Right subclavian line remains unchanged in position. Chest tube overlies the left chest. Heart size i s enlarged. There are postop sternotomy changes. Bibasilar parenchymal lung changes are stable. IMPRESSION: Interval removal of the chest tube overlying the left chest. Otherwise, no interval change. POS: VAL
--- NOTE | 2017-10-01 09:18 | PDOC.CTH ---
<Linette Corbett - Last Filed: 10/01/17 09:54> Cardiology Progress Note - Subjective The pt seen and examined. No overnight events. No cardiac complaints. He stated he could not tolerate [place] which caused dizziness and nausea. - Objective Vital Signs Temp Pulse Resp Pulse Ox 10/01/17 08:23 96 10/01/17 07:45 98.5 F 78 19 96 10/01/17 04:00 99 F 10/01/17 00:00 98.2 F Weight 215 lb 9.793 oz 09/30/17 10/01/17 10/02/17 06:59 06:59 06:59 Intake Total 2852.4 1390 250 Output Total 1201 1360 175 Balance 1651.4 30 75 - Physical Examination General/Neuro: alert & oriented x3 Neck: no JVD present Lungs: CTA (diminished at bases; Encourage to use IS q1hr) Abdomen: soft Extremities: other: (No edema) - Telemetry Telemetry Rhythm: SR - Labs Result Diagrams: 10/01/17 03:50 10/01/17 03:50 Troponin/CKMB CK-MB (CK-2) 11.1 ng/mL (0-6.6) H* 09/29/17 06:11 Troponin I 3.915 ng/mL (< 0.028) H* 09/29/17 06:11 - Assessment/Plan 1. CAD with s/p CABG x4 on 09/29/17 with PATEL-LAD, saph-diag, and saph-PDA and OM3 - stable with ASA; Start Lipitor 10mg daily from tonight. Will start BBlocker and LUIS when his VS is more stable 2. HTN - stable; Will start BBlocker and LUIS when his VS is more stable 3. Hyperlipidemia - Start Lipitor 10mg daily from tonight. 4. DM type 2 - on ACHS BG check with Insuline SS; managed by PCP PRATIK reviewed * Echo on 09/28/17 showed EF 50-55%, trace MR and mild TR. Review of Systems - Review of Systems Constitutional: reports: no symptoms reported EENTM: reports: no symptoms reported Respiratory: reports: no symptoms reported Cardiac (ROS): reports: no symptoms reported ABD/GI: reports: no symptoms reported : reports: no symptoms reported Musculoskeletal: reports: no symptoms reported <Garrett Kruse - Last Filed: 10/01/17 16:48> Cardiology Progress Note - Objective Vital Signs Temp Pulse Pulse Pulse Resp BP BP 10/01/17 15:37 98.4 F 81 18 10/01/17 14:42 79 79 120/57 L 142/61 H 10/01/17 11:50 99 F 88 18 10/01/17 10:05 99.3 F 81 20 10/01/17 08:23 10/01/17 07:45 98.5 F 78 19 BP Pulse Ox Pulse Ox Pulse Ox 10/01/17 15:37 119/58 L 92 L 10/01/17 14:42 94 L 93 L 10/01/17 11:50 127/59 L 95 10/01/17 10:05 141/60 H 95 10/01/17 08:23 96 10/01/17 07:45 96 Weight 215 lb 9.793 oz 09/30/17 10/01/17 10/02/17 06:59 06:59 06:59 Intake Total 2852.4 1390 250 Output Total 1201 1360 820 Balance 1651.4 30 -570 - Labs Result Diagrams: 10/01/17 03:50 10/01/17 03:50 Troponin/CKMB CK-MB (CK-2) 11.1 ng/mL (0-6.6) H* 09/29/17 06:11 Troponin I 3.915 ng/mL (< 0.028) H* 09/29/17 06:11 - Assessment/Plan Pt. seen and eval. by me. I agree with the A/P by the ENLISTED AIRCREW/AERIAL OBSERVER/GUNNER.He is doing well post CABG. Chest clear. RRR.
--- NOTE | 2017-10-01 09:33 | PRG ---
DATE OF SERVICE: 10/01/2017 SUBJECTIVE: Mr. Dixon says he is feeling much better today. He has much more energy. OBJECTIVE: VITAL SIGNS: He is afebrile, his heart rate is 78, respiratory rate is 19, oximetry is 96% on 3 lite rs, blood pressure 120/54. LUNGS: Clear. HEART: Regular rhythm. S1 and S2 are normal. ABDOMEN: Soft and nontender. EXTREMITIES: Without asymmetry, edema, or ischemic changes. IMAGING: Chest radiographs reviewed, he still has bibasilar atelectatic changes. This should improv e as he begins to ambulate. LABORATORY DATA: His white count is 11.5, hemoglobin 10.7, platelets 156,000. Sodium 136, potassium 3.8, chloride 109, bicarbonate 24, BUN 14, creatinine 0.93. Intake and output is positive 30 mL. IMPRESSION: 1. Status post coronary artery bypass grafting, progressing nicely. 2. Diabetes. 3. Tobacco use. No clinical evidence of obstructive lung disease. 4. History of hypertension.
[2017-10-01] MEDS ORDERED: Mineral Oil ENEMA PR PRN (10:48)
[2017-10-01] MEDS ORDERED: Artificial Tear Sol 15 ML BOT EA EYE PRN (10:48)
[2017-10-01] MEDS ORDERED: Mag-Al 1200 mg/1200 mg/30 ML UDCUP PO PRN (10:48)
[2017-10-01] MEDS ORDERED: diphenhydrAMINE 25 MG CAP PO PRN (10:48)
[2017-10-01] MEDS ORDERED: Nitroglycerin 0.4 MG TAB (25 Tab Bottle) SL PRN (10:48)
[2017-10-01] MEDS ORDERED: Bisacodyl 10 MG SUPP PR PRN (10:48)
[2017-10-01] MEDS ORDERED: Bisacodyl 5 MG TAB PO PRN (10:48)
[2017-10-01] MEDS ORDERED: Zolpidem Tartrate 5 MG TAB PO PRN (10:48)
[2017-10-01] MEDS ORDERED: Guaifenesin DM 100-10/5 ML UDCUP PO PRN (10:48)
[2017-10-01] MEDS ORDERED: Potassium Chloride 10 MEQ TAB PO SCH (11:15)
[2017-10-01] MEDS ORDERED: Furosemide 40 MG TAB PO SCH (11:15)
[2017-10-01] MEDS ORDERED: Metoprolol Tartrate 25 MG TAB PO SCH ×2 (11:15→21:00)
--- NOTE | 2017-10-01 15:35 | PDOC.PN ---
- Subjective Encounter Start Date: 10/01/17 Encounter Start Time: 10:00 Subjective: pt up in bed no compalins - Objective Vital Signs & Weight: Vital Signs (12 hours) Temp Pulse Pulse Pulse Resp BP BP 10/01/17 14:42 79 79 120/57 L 142/61 H 10/01/17 11:50 99 F 88 18 10/01/17 10:05 99.3 F 81 20 10/01/17 08:23 10/01/17 07:45 98.5 F 78 19 10/01/17 04:00 99 F BP Pulse Ox Pulse Ox Pulse Ox 10/01/17 14:42 94 L 93 L 10/01/17 11:50 127/59 L 95 10/01/17 10:05 141/60 H 95 10/01/17 08:23 96 10/01/17 07:45 96 10/01/17 04:00 Weight Weight 215 lb 9.793 oz Most Recent Monitor Data Heart Rate from ECG 82 NIBP 117/53 NIBP BP-Mean 70 Respiration from ECG 15 SpO2 96 I&O: 09/30/17 10/01/17 10/02/17 06:59 06:59 06:59 Intake Total 2852.4 1390 250 Output Total 1201 1360 820 Balance 1651.4 30 -570 Result Diagrams: 10/01/17 03:50 10/01/17 03:50 Additional Labs: Accuchecks 10/01/17 10/01/17 10/01/17 11:10 07:39 03:50 POC Glucose 167 H 166 H 117 H 09/30/17 09/30/17 23:56 20:55 POC Glucose 121 H 141 H Phys Exam - Physical Examination Neck: no nodes, no JVD, supple, full ROM Respiratory: no wheezing, no rales, no rhonchi, wheezing present, clear to auscultation bilateral Cardiovascular: RRR, no significant murmur, no rub, gallop, irregular sternum wound open to air Gastrointestinal: soft, non-tender, no distention, positive bowel sounds Musculoskeletal: no edema, pulses present, edema present Dx/Plan - Plan 1) CAD 2) NSTEMI 3) elevated trops 4) DM type 2 plan: s/p CABG, doing well. continue asa/bb/qing/statin. Pt on home dose insulin. pt to walk with cardiac rehab. * . Review of Systems - Review of Systems Eyes: negative: Pain, Vision Change, Conjunctivae Inflammation, Eyelid Inflammation, Redness, Other ENT: negative: Ear Pain, Ear Discharge, Nose Pain, Nose Discharge, Nose Congestion, Mouth Pain, Mouth Swelling, Throat Pain, Throat Swelling, Other Respiratory: negative: Cough, Dry, Shortness of Breath, Hemoptysis, SOB with Excertion, Pleuritic Pain, Sputum, Wheezing Cardiovascular: negative: chest pain, palpitations, orthopnea, paroxysmal nocturnal dyspnea, edema, light headedness, other Gastrointestinal: negative: Nausea, Vomiting, Abdominal Pain, Diarrhea, Constipation, Melena, Hematochezia, Other - Medications/Allergies Allergies/Adverse Reactions: Allergies Allergy/AdvReac Type Severity Reaction Status Date / Time No Known Allergies Allergy Unverified 09/28/17 15:28 Medications: Current Medications Acetaminophen (Tylenol) 650 mg PO Q6H PRN PRN Reason: Headache/Fever Or Mild Pain Al Hydroxide/Mg Hydroxide (Maalox) 30 ml PO Q4H PRN PRN Reason: Indigestion Albuterol/Ipratropium (Duoneb) 3 ml NEB [id number] PRN PRN Reason: SHORTNESS OF BREATH Artificial Tears (Tears Renewed 15ml Bottle) 0 drop EA EYE ASDIR PRN PRN Reason: Dry Eyes Last Admin: 09/29/17 22:12 Dose: 1 drop Artificial Tears (Tears Renewed 15ml Bottle) 0 drop EA EYE PRN PRN PRN Reason: Dry Eyes Aspirin (Ecotrin) 325 mg PO DAILY KEVIN Atorvastatin Calcium (Lipitor) 10 mg PO HS KEVIN Bisacodyl (Dulcolax) 10 mg PO Q12H PRN PRN Reason: Constipation Bisacodyl (Dulcolax) 10 mg ND Q12H PRN PRN Reason: Constipation Dextrose/Water (Dextrose 50%) 25 gm SLOW IVP PRN PRN PRN Reason: PER HYPOGLYCEMIC PROTOCOL Diphenhydramine HCl (Benadryl) 25 mg PO Q6H PRN PRN Reason: Itching & Insomnia or Eze Justin Famotidine (Pepcid) 20 mg SLOW IVP Q12HR [facility] Last Admin: 10/01/17 07:44 Dose: 20 mg Fentanyl (Sublimaze) 25 mcg SLOW IVP Q2H PRN PRN Reason: Moderate Pain (4-6) Stop: 10/01/17 16:08 Last Admin: 09/29/17 22:11 Dose: 25 mcg Fentanyl (Sublimaze) 50 mcg SLOW IVP Q2H PRN PRN Reason: Severe Pain (7-10) Stop: 10/01/17 16:08 Last Admin: 09/30/17 02:25 Dose: 50 mcg Furosemide (Lasix) 40 mg PO DAILY-[facility] Glucagon (Glucagon) 1 mg SC PRN PRN PRN Reason: PER HYPOGLYCEMIC PROTOCOL Guaifenesin/Dextromethorphan (Robitussin Dm) 15 ml PO Q4H PRN PRN Reason: Cough Hydralazine HCl (Apresoline) 10 mg SLOW IVP Q6H PRN PRN Reason: To Maintain SBP< 140mmHG Dextrose/Water (D5w) 1,000 mls @ 0 mls/hr IV INF PRN; As Directed PRN Reason: PRN HYPOGLYCEMIC PROTOCOL Magnesium Sulfate 1 gm/ Sodium (Chloride) 52 mls @ 104 mls/hr IVPB QAM [facility] Stop: 10/02/17 09:29 Last Admin: 10/01/17 11:10 Dose: 52 mls Potassium Chloride 20 meq/ (Device) 100 mls @ 50 mls/hr IVPB PRN PRN PRN Reason: K LEVEL </=4.0 Last Admin: 10/01/17 05:39 Dose: 100 mls Insulin Detemir 20 units/ (Miscellaneous Medication) 0.2 mls @ 0 mls/hr SC QPM [facility] Insulin Human Regular (Humulin R) 0 units SC Q4H PRN; Protocol PRN Reason: POST OP SLIDING SCALE Last Admin: 10/01/17 12:06 Dose: 4 unit Ketorolac Tromethamine (Toradol) 30 mg IVP Q6HR [facility] Stop: 10/02/17 18:01 Last Admin: 10/01/17 12:09 Dose: 30 mg Lisinopril (Zestril) 2.5 mg PO DAILY [facility] Metoprolol Tartrate (Lopressor) 25 mg PO BID [facility] Mineral Oil (Fleet Mineral Oil) 133 ml ND DAILYPRN PRN PRN Reason: Constipation Nitroglycerin (Nitrostat) 0.4 mg SL Q5MIN PRN PRN Reason: Chest Pain Ondansetron HCl (Zofran) 4 mg IVP Q6H PRN PRN Reason: Nausea/Vomiting Potassium Chloride (Klor-Con 10) 10 meq PO QAM-WM KEVIN Promethazine HCl (Phenergan) 6.25 mg IM Q4H PRN PRN Reason: Nausea/Vomiting Sodium Chloride (Flush - Normal Saline) 10 ml IVF Q12HR [facility] Last Admin: 10/01/17 11:43 Dose: 10 ml Tramadol HCl (Ultram) 100 mg PO Q4H PRN PRN Reason: Pain Zolpidem Tartrate (Ambien) 5 mg PO HSPRN PRN PRN Reason: Insomnia Last Admin: 09/30/17 20:45 Dose: 5 mg
[2017-10-01 18:49] LABS: Bilirubin Negative (Negative); Blood, Urine Large (Negative); Clarity CLEAR (Clear); Glucose, Urine (Dipstick) Negative (Negative); Leukocyte Small (Negative); Nitrite Negative (Negative); Protein, Urine (Dipstick) Negative (Neg-Trace); pH, Urine 7.5 (5.0-9.0)
[2017-10-01 18:51] LABS: Bacteria/HPF None Seen HPF (None Seen); Hyaline Casts/LPF 0-3 HYALINE CAST LPF (0-3 Hyaline); RBC/HPF GREATER THAN 50-TNTC HPF (0-3); Squamous Epithelial None Seen HPF (0-3)
[2017-10-01] MEDS: Atorvastatin Calcium 10 MG TAB PO SCH (20:30)
[2017-10-01] MEDS: Famotidine 20 MG TAB PO SCH (20:30)
[2017-10-01] MEDS: Metoprolol Tartrate 25 MG TAB PO SCH (20:30)
[2017-10-01] MEDS ORDERED: Insulin Detemir 100 UNITS/ML 20 UNITS in Pre-Filled Syringe 1 EACH SC SCH (21:00)
[2017-10-01] MEDS ORDERED: Non-Formulary Item 1 EACH (Levemir Flexpen [Levemir Flexpen] 20 UNITS) SC SCH (21:00)
[2017-10-02] MEDS: Ketorolac Tromethamine 30 MG/ML VIAL IVP SCH ×3 (05:24→17:45)
[2017-10-02] MEDS: Famotidine 20 MG TAB PO SCH ×2 (08:52→21:58)
[2017-10-02] MEDS: Aspirin 325 mg Enteric Coated Tablet PO SCH (08:52)
[2017-10-02] MEDS: Metoprolol Tartrate 25 MG TAB PO SCH ×2 (08:52→21:57)
[2017-10-02] MEDS: Furosemide 40 MG TAB PO SCH (08:52)
[2017-10-02] MEDS: Potassium Chloride 10 MEQ TAB PO SCH (08:52)
[2017-10-02] MEDS ORDERED: Lisinopril 2.5 MG TAB PO SCH (09:00)
--- NOTE | 2017-10-02 09:07 | PRG ---
DATE OF SERVICE: 10/02/2017 SUBJECTIVE: Mr. Dixon is doing well. PHYSICAL EXAMINATION: VITAL SIGNS: He is afebrile, heart rate 75, respiratory rate 16, oximetry is 94% on 3 liters, blood pressure 133/65. LUNGS: He has crackles at his left base. HEART: Regular rhythm. ABDOMEN: Soft. He says he feels a little congested today. LABORATORY DATA: His white count is 11.5 yesterday, glucose 127 this morning. IMPRESSION: 1. History of smoking with some congestion, most likely secondary to atelectasis. Nebulized Brovana may help. 2. Status post coronary artery bypass grafting. 3. Tobacco use up until recently. 4. Diabetes. PLAN: He has only ambulated once, so we will concentrate on walking more today. He appears to be stable. The Brovana probably will help with his atelectasis.
[2017-10-02] MEDS ORDERED: Arformoterol 15 MCG/2 ML NEB NEB SCH (09:15)
--- NOTE | 2017-10-02 13:53 | PDOC.CTH ---
<Linette Corbett - Last Filed: 10/02/17 13:51> Cardiology Progress Note - Subjective the pt seen and examined. No overnight events No cardiac complaints. He already walked around the unit without any difficulties. Instructed to use IS q1hr. - Objective Vital Signs Temp Pulse Pulse Pulse Resp BP BP 10/02/17 12:00 97.6 F 72 18 10/02/17 10:39 10/02/17 10:38 71 12 10/02/17 08:53 75 133/65 10/02/17 08:33 85 82 141/62 H 10/02/17 07:25 98.2 F 75 16 10/02/17 07:23 98.2 F 75 16 10/02/17 04:00 98.4 F 75 14 BP BP Pulse Ox Pulse Ox Pulse Ox 10/02/17 12:00 148/74 H 93 L 10/02/17 10:39 95 10/02/17 10:38 10/02/17 08:53 10/02/17 08:33 140/69 91 L 93 L 10/02/17 07:25 10/02/17 07:23 133/65 94 L 10/02/17 04:00 125/62 92 L Weight 215 lb 11.2 oz 10/01/17 10/02/17 10/03/17 06:59 06:59 06:59 Intake Total 1390 1020 Output Total 1360 3160 Balance 30 -2140 - Physical Examination General/Neuro: alert & oriented x3 Neck: no JVD present Lungs: CTA (diminished at bases) Heart: RRR Abdomen: soft Extremities: other: (No edema; bilat TEDs) - Telemetry Telemetry Rhythm: SR - Labs Result Diagrams: 10/01/17 03:50 10/01/17 03:50 Troponin/CKMB CK-MB (CK-2) 11.1 ng/mL (0-6.6) H* 09/29/17 06:11 Troponin I 3.915 ng/mL (< 0.028) H* 09/29/17 06:11 - Assessment/Plan 1. CAD with s/p CABG x4 on 09/29/17 with PATEL-LAD, saph-diag, and saph-PDA and OM3 - stable with ASA, BBlocker, Statin, and TOMMY which was started from today. Cont. to monitor by tele 2. HTN - stable with BBlocker and TOMMY. 3. Hyperlipidemia - Start Lipitor 10mg daily from [facility]. 4. DM type 2 - on ACHS BG check with Insuline SS; managed by PCP 5. Smoker - smoking cassation education given to the pt. MAR reviewed * Echo on 09/28/17 showed EF 50-55%, trace MR and mild TR. Review of Systems - Review of Systems Constitutional: reports: no symptoms reported EENTM: reports: no symptoms reported Respiratory: reports: no symptoms reported Cardiac (ROS): reports: no symptoms reported ABD/GI: reports: no symptoms reported : reports: no symptoms reported <Garrett Kruse - Last Filed: 10/02/17 14:55> Cardiology Progress Note - Objective Vital Signs Temp Pulse Pulse Pulse Resp BP BP 10/02/17 12:00 97.6 F 72 18 10/02/17 10:39 10/02/17 10:38 71 12 10/02/17 08:53 75 133/65 10/02/17 08:33 85 82 141/62 H 10/02/17 07:25 98.2 F 75 16 10/02/17 07:23 98.2 F 75 16 10/02/17 04:00 98.4 F 75 14 BP BP Pulse Ox Pulse Ox Pulse Ox 10/02/17 12:00 148/74 H 93 L 10/02/17 10:39 95 10/02/17 10:38 10/02/17 08:53 10/02/17 08:33 140/69 91 L 93 L 10/02/17 07:25 10/02/17 07:23 133/65 94 L 10/02/17 04:00 125/62 92 L Weight 215 lb 11.2 oz 10/01/17 10/02/17 10/03/17 06:59 06:59 06:59 Intake Total 1390 1020 Output Total 1360 3160 Balance 30 -2140 - Labs Result Diagrams: 10/01/17 03:50 10/01/17 03:50 Troponin/CKMB CK-MB (CK-2) 11.1 ng/mL (0-6.6) H* 09/29/17 06:11 Troponin I 3.915 ng/mL (< 0.028) H* 09/29/17 06:11 - Assessment/Plan pt. seen and eval. by me. I agree with the A/P by the LICENSED FUNERAL DIRECTOR but will increase the Tommy-I up to 10 mg qd. Prob. home isn the next couple days.
[2017-10-02] MEDS: Arformoterol 15 MCG/2 ML NEB NEB SCH (19:07)
[2017-10-02] MEDS: Zolpidem Tartrate 5 MG TAB PO PRN (21:58)
[2017-10-02] MEDS: Atorvastatin Calcium 10 MG TAB PO SCH (21:58)
[2017-10-02] MEDS: Insulin Detemir 100 UNITS/ML 40 UNITS in Pre-Filled Syringe 1 EACH SC SCH (23:05)
[2017-10-03] MEDS: Arformoterol 15 MCG/2 ML NEB NEB SCH ×2 (07:57→18:35)
[2017-10-03] MEDS: Furosemide 40 MG TAB PO SCH (08:49)
[2017-10-03] MEDS: Famotidine 20 MG TAB PO SCH ×2 (08:49→21:42)
[2017-10-03] MEDS: Aspirin 325 mg Enteric Coated Tablet PO SCH (08:50)
[2017-10-03] MEDS: Lisinopril 10 MG TAB PO SCH (08:50)
[2017-10-03] MEDS: Potassium Chloride 10 MEQ TAB PO SCH (08:50)
[2017-10-03] MEDS: Metoprolol Tartrate 25 MG TAB PO SCH ×2 (08:50→21:43)
--- NOTE | 2017-10-03 12:38 | PRG ---
DATE OF SERVICE: 10/03/2017 SERVICE: Pulmonary Medicine. INTERVAL HISTORY: The patient feels like he is really doing quite well. Last night, he was taken of f of oxygen. This morning, his saturations were marginal. He was put back on it. He denies any erika st pain, nausea or vomiting. He is avoiding coughing because of the discomfort. He felt like he ove rused the coughing and incentive spirometer yesterday and is feeling a little bit tight in the chest. Otherwise, there has been no interval change to his condition. He does not have any complaints of sputum production, fevers, chills, nausea, vomiting or diarrhea. PHYSICAL EXAMINATION: VITAL SIGNS: Afebrile, pulse 73, blood pressure 123/58, respirations 18, saturation 94% on 2 liters on room air, he was 84% this morning. HEENT: Normocephalic, atraumatic. Sclerae are white, conjunctivae pink. Oral mucosa is moist witho ut lesions. LUNGS: Decent air entry bilaterally. There is no prolonged expiratory phase, but there are crackles present bilaterally. HEART: Normal rate and regular. ABDOMEN: Soft, nontender, and nondistended. Bowel sounds are positive. MUSCULOSKELETAL: No cyanosis or clubbing. There is trace pitting in the bilateral lower extremities . NEUROLOGIC: Grossly nonfocal. ASSESSMENT: 1. Acute hypoxic respiratory failure. 2. Coronary artery bypass graft, postoperative day #4. 3. Coronary artery disease. 4. Tobacco abuse. 5. Type 2 diabetes mellitus. PLAN: We will diurese him until he returns to euvolemia. I have encouraged him to ambulate througho ut the day. He will need to continue using that incentive spirometer. Hopefully, in 24 hours, he wi ll be off of oxygen once again and ready for discharge home. If his oxygen requirements get worse, a repeat chest x-ray will be considered.
[2017-10-03] MEDS ORDERED: Metolazone 5 MG TAB PO SCH ×2 (12:45)
[2017-10-03] MEDS ORDERED: Furosemide 40 MG TAB PO SCH (15:00)
--- NOTE | 2017-10-03 17:01 | PDOC.PN ---
- Subjective Encounter Start Date: 10/02/17 Encounter Start Time: 11:00 -: old records requested/rev Pt seen and examined, chart reviewed in its entirety, this is my first visit with this patient S/P CABG, POD 2. transferred to floor last evening, anterior pain well controlled, increased with deep inspiration. No f/C, no n/V/D/C, some PHILLIPS, some cough, [employer], no hemoptysis 10 point ROS performed and neg for all systems except as per HPI - Objective MAR Reviewed: Yes Vital Signs & Weight: Vital Signs (12 hours) Temp Pulse Pulse Pulse Resp BP BP 10/03/17 16:28 98.7 F 64 18 10/03/17 16:16 74 71 156/69 H 134/66 10/03/17 12:56 83 73 133/62 127/58 L 10/03/17 12:29 97.7 F 70 18 10/03/17 08:50 10/03/17 08:45 97.9 F 73 18 10/03/17 08:40 97.9 F 73 18 10/03/17 07:59 10/03/17 07:57 71 12 BP Pulse Ox Pulse Ox Pulse Ox 10/03/17 16:28 158/69 H 95 10/03/17 16:16 92 L 93 L 10/03/17 12:56 93 L 93 L 10/03/17 12:29 132/68 96 10/03/17 08:50 94 L 10/03/17 08:45 123/58 L 84 L 10/03/17 08:40 10/03/17 07:59 91 L 10/03/17 07:57 Weight Weight 217 lb 11.2 oz Most Recent Monitor Data Heart Rate from ECG 82 NIBP 117/53 NIBP BP-Mean 70 Respiration from ECG 15 SpO2 96 I&O: 10/02/17 10/03/17 10/04/17 06:59 06:59 06:59 Intake Total 1020 700 Output Total 3160 Balance -2140 700 Result Diagrams: 10/01/17 03:50 10/01/17 03:50 Additional Labs: Accuchecks 10/03/17 10/03/17 10/02/17 11:00 05:42 20:56 POC Glucose 114 H 118 H 120 H Radiology Reviewed by me: Yes EKG Reviewed by me: Yes Phys Exam - Physical Examination Constitutional: NAD HEENT: PERRLA, moist MMs, sclera anicteric, oral pharynx no lesions Neck: no nodes, no JVD, supple, full ROM Respiratory: no wheezing, no rales, no rhonchi, clear to auscultation bilateral Cardiovascular: RRR, no significant murmur, no rub Gastrointestinal: soft, non-tender, no distention, positive bowel sounds Musculoskeletal: pulses present, edema present Neurological: non-focal, normal sensation, moves all 4 limbs Lymphatic: no nodes Psychiatric: normal affect, A&O x 3 Skin: no rash, normal turgor, cap refill <2 seconds Deviation from normal: incision to sternum C/D/I Dx/Plan (1) CAD (coronary artery disease) Code(s): I25.10 - ATHSCL HEART DISEASE OF [place] CORONARY ARTERY W/O ANG PCTRS Status: Acute Qualifiers: Coronary Disease-Associated Artery/Lesion type: [place] artery [place] vs. transplanted heart: [place] heart Associated angina: with unstable angina Qualified Code(s): I25.110 - Atherosclerotic heart disease of [place] coronary artery with unstable angina pectoris (2) S/P CABG x 3 Code(s): Z95.1 - PRESENCE OF AORTOCORONARY BYPASS GRAFT Status: Acute Comment: new, s/p CABG x 3v. (3) NSTEMI (non-ST elevated myocardial infarction) Code(s): I21.4 - NON-ST ELEVATION (NSTEMI) MYOCARDIAL INFARCTION Status: Resolved (4) DM2 (diabetes mellitus, type 2) Status: Acute Qualifiers: Diabetes mellitus jail insulin use: unspecified jail insulin use status Diabetes mellitus complication status: with circulatory complication Diabetes mellitus complication detail: with other circulatory complications Qualified Code(s): E11.59 - Type 2 diabetes mellitus with other circulatory complications (5) HTN (hypertension) Code(s): I10 - ESSENTIAL (PRIMARY) HYPERTENSION Status: Chronic Qualifiers: Hypertension type: essential hypertension Qualified Code(s): I10 - Essential (primary) hypertension - Plan cont current plan of care, plan discussed w/ family, PT/OT, respiratory therapy , incentive spirometry, out of bed/ambulate, DVT proph w/lovenox * .
--- NOTE | 2017-10-03 17:05 | PDOC.PN ---
- Subjective Encounter Start Date: 10/03/17 Encounter Start Time: 14:50 Pt tried ambien for sleep last night, vivid dreams, poor sleep, groggy today. does not want again. no F/C, no n/V/d/C. Seen by Dr Nieves, working on IS and weaning O2. 10 point ROS performed and neg for all systems except as per HPI - Objective MAR Reviewed: Yes Vital Signs & Weight: Vital Signs (12 hours) Temp Pulse Pulse Pulse Resp BP BP 10/03/17 16:28 98.7 F 64 18 10/03/17 16:16 74 71 156/69 H 134/66 10/03/17 12:56 83 73 133/62 127/58 L 10/03/17 12:29 97.7 F 70 18 10/03/17 08:50 10/03/17 08:45 97.9 F 73 18 10/03/17 08:40 97.9 F 73 18 10/03/17 07:59 10/03/17 07:57 71 12 BP Pulse Ox Pulse Ox Pulse Ox 10/03/17 16:28 158/69 H 95 10/03/17 16:16 92 L 93 L 10/03/17 12:56 93 L 93 L 10/03/17 12:29 132/68 96 10/03/17 08:50 94 L 10/03/17 08:45 123/58 L 84 L 10/03/17 08:40 10/03/17 07:59 91 L 10/03/17 07:57 Weight Weight 217 lb 11.2 oz Most Recent Monitor Data Heart Rate from ECG 82 NIBP 117/53 NIBP BP-Mean 70 Respiration from ECG 15 SpO2 96 I&O: 10/02/17 10/03/17 10/04/17 06:59 06:59 06:59 Intake Total 1020 700 Output Total 3160 Balance -2140 700 Result Diagrams: 10/01/17 03:50 10/01/17 03:50 Additional Labs: Accuchecks 10/03/17 10/03/17 10/02/17 11:00 05:42 20:56 POC Glucose 114 H 118 H 120 H Phys Exam - Physical Examination Constitutional: NAD HEENT: PERRLA, moist MMs, sclera anicteric, oral pharynx no lesions Neck: no nodes, no JVD, supple, full ROM Respiratory: no wheezing, no rhonchi, clear to auscultation bilateral faint bibasilar crackles Cardiovascular: RRR, no significant murmur, no rub Gastrointestinal: soft, non-tender, no distention, positive bowel sounds Musculoskeletal: pulses present, edema present Neurological: non-focal, normal sensation, moves all 4 limbs Lymphatic: no nodes Psychiatric: normal affect, A&O x 3 Skin: no rash, normal turgor, cap refill <2 seconds Dx/Plan (1) CAD (coronary artery disease) Code(s): I25.10 - ATHSCL HEART DISEASE OF [place] CORONARY ARTERY W/O ANG PCTRS Status: Acute Qualifiers: Coronary Disease-Associated Artery/Lesion type: [place] artery [place] vs. transplanted heart: [place] heart Associated angina: with unstable angina Qualified Code(s): I25.110 - Atherosclerotic heart disease of [place] coronary artery with unstable angina pectoris (2) S/P CABG x 3 Code(s): Z95.1 - PRESENCE OF AORTOCORONARY BYPASS GRAFT Status: Acute Comment: new, s/p CABG x 3v. 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 continue diuresis, levemir, IS, weaning O2. home when off of o2 and when cleared by CT surgery
[2017-10-03] MEDS: Atorvastatin Calcium 10 MG TAB PO SCH (21:43)
[2017-10-03] MEDS: Insulin Detemir 100 UNITS/ML 40 UNITS in Pre-Filled Syringe 1 EACH SC SCH (22:30)
[2017-10-04 04:49] LABS: #Basophils 0.1 thou/uL (0.0-0.2); #Eosinphils 0.7 thou/uL (0.0-0.7); #Lymphocytes 1.9 thou/uL (1.20-3.40); #Monocytes 1.2 thou/uL (0.11-0.59); %Basophils 0.7 % (0.0-1.0); %Eosinophils 6.7 % (0.0-10.0); %Lymphocytes 19.6 % (21.0-51.0); %Monocytes 11.7 % (0.0-10.0); %Neutrophils 61.2 % (42.0-75.0); Hemoglobin 12.5 g/dL (14.0-18.0); Mean Corpuscular HGB CONC 35.6 g/dL (32.0-36.0); Mean Corpuscular Hemoglobin 34.6 pg (27.0-31.0); Mean Corpuscular Volume 97.2 fl (80.0-94.0); Mean Platelet Volume 7.1 fL (7.4-10.4); Platelet Count 235 thou/uL (130-400); RBC Distribution Width 11.3 % (11.5-14.5); Red Blood Cell (RBC) Count 3.61 mill/uL (4.70-6.10); White Blood Cell (WBC) Count 9.8 thou/uL (4.8-10.8)
[2017-10-04 05:04] LABS: Anion Gap 15 mmol/L (10-20); BUN (Urea Nitrogen) 17 mg/dL (8.4-25.7); Calc. Creatinine Clearance 112 mL/min (70-130); Carbon Dioxide 20 mmol/L (23-31); Chloride 106 mmol/L (98-107); Estimated GFR-MDRD 85; Glucose 102 mg/dL (80-115); Magnesium 2.1 mg/dL (1.6-2.6); Potassium 4.2 mmol/L (3.5-5.1); Sodium 137 mmol/L (136-145)
[2017-10-04] MEDS: Arformoterol 15 MCG/2 ML NEB NEB SCH (08:12)
[2017-10-04] MEDS: Potassium Chloride 10 MEQ TAB PO SCH (09:22)
[2017-10-04] MEDS: Furosemide 40 MG TAB PO SCH (09:23)
[2017-10-04] MEDS: Lisinopril 10 MG TAB PO SCH (09:23)
[2017-10-04] MEDS: Metoprolol Tartrate 25 MG TAB PO SCH (09:24)
[2017-10-04] MEDS: Aspirin 325 mg Enteric Coated Tablet PO SCH (09:24)
[2017-10-04] MEDS: Famotidine 20 MG TAB PO SCH (09:24)
[2017-10-04 11:30] VITALS: TEMP 98.5
[2017-10-04 11:59] VITALS: BP 115/57
== END 2017-10-04 12:00 | disposition home or self-care (01) | DRG 233 ==
LOC: ERS 09:56 → 2SW 13:01 → OBSVTOIN 18:55 → 2NO 19:14 → CCU 09-29 10:09 → 2NO 10-01 09:55
PROVIDERS: ADMIT Internal Medicine; ATTEND Internal Medicine
PROC: 4A023N7 Measurement of Cardiac Sampling and Pressure, Left Heart, Percutaneous Approach (ICD-10-PCS; 2017-09-28)
PROC: B2111ZZ Fluoroscopy of Multiple Coronary Arteries using Low Osmolar Contrast (ICD-10-PCS; 2017-09-28)
PROC: 02100Z9 Bypass Coronary Artery, One Artery from Left Internal Mammary, Open Approach (ICD-10-PCS; principal; 2017-09-29)
PROC: 0212093 Bypass Coronary Artery, Three Arteries from Coronary Artery with Autologous Venous Tissue, Open Approach (ICD-10-PCS; 2017-09-29)
PROC: 06BQ4ZZ Excision of Left Saphenous Vein, Percutaneous Endoscopic Approach (ICD-10-PCS; 2017-09-29)
PROC: 5A1221Z Performance of Cardiac Output, Continuous (ICD-10-PCS; 2017-09-29)
DX: I21.4 Non-ST elevation (NSTEMI) myocardial infarction (principal); J96.01 Acute respiratory failure with hypoxia; E11.9 Type 2 diabetes mellitus without complications; I10 Essential (primary) hypertension; I25.10 Atherosclerotic heart disease of native coronary artery without angina pectoris; F17.210 Nicotine dependence, cigarettes, uncomplicated; Z79.4 Long term (current) use of insulin; E78.00 Pure hypercholesterolemia, unspecified; Z79.899 Other long term (current) drug therapy
CPT/HCPCS: 36415; 36416; 71045; 71046; 80048; 80053; 80061; 81003; 81015; 82550; 82553; 82805; 83036; 83690; 83735; 84484; 85025; 85610; 85730; 86850; 86900; 86901; 93005; 93010; 93306; 93458; 93798; 94002; 94150; 94640; 94760; 96372; A4216; C1769; J1642; J1644; J1650; J1815; J1885; J2001; J2250; J2270; J2440; J2704; J2720; J3010; J3246; J3370; J3475; J3480; J7050; P9045; P9047; S0017

== ENCOUNTER 2018-02-06 15:29 | Emergency (ER) | payer MEDICARE ==
[2018-02-06] MEDS ORDERED: Metoclopramide HCl 10 MG/2 ML VIAL ONE (16:02)
[2018-02-06] MEDS ORDERED: diphenhydrAMINE 50 MG/ML VIAL ONE (16:02)
[2018-02-06 16:11] LABS: #Basophils 0.1 thou/uL (0.0-0.2); #Eosinphils 0.5 thou/uL (0.0-0.7); #Lymphocytes 1.7 thou/uL (1.20-3.40); #Monocytes 0.7 thou/uL (0.11-0.59); #Neutrophils 6.9 thou/uL (1.40-6.50); %Basophils 1.4 % (0.0-1.0); %Eosinophils 4.7 % (0.0-10.0); %Lymphocytes 17.3 % (21.0-51.0); %Monocytes 7.1 % (0.0-10.0); %Neutrophils 69.5 % (42.0-75.0); Hemoglobin 15.5 g/dL (14.0-18.0); Mean Corpuscular HGB CONC 35.3 g/dL (32.0-36.0); Mean Corpuscular Hemoglobin 30.9 pg (27.0-31.0); Mean Corpuscular Volume 87.5 fL (78.0-98.0); Mean Platelet Volume 6.1 fL (7.4-10.4); Platelet Count 219 thou/uL (130-400); RBC Distribution Width 11.4 % (11.5-14.5); Red Blood Cell (RBC) Count 5.01 mill/uL (4.70-6.10)
--- NOTE | 2018-02-06 16:21 | CT ---
CT BRAIN NONCONTRAST: 02/06/18 HISTORY: 67-year-old male with headache. FINDINGS: There is no midline shift or any other mass effect. There is no evidence of acute intracranial hemor rhage, large cortical infarct, obstructive hydrocephalus, or extraaxial fluid collection. The calvar ium is intact. IMPRESSION: No acute intracranial findings. jn [] POS: VAL
[2018-02-06 16:22] LABS: ALT (SGPT) 16 U/L (8-55); AST (SGOT) 19 U/L (5-34); Alkaline Phosphatase 57 U/L (40-150); Anion Gap 13 mmol/L (10-20); BUN (Urea Nitrogen) 12 mg/dL (8.4-25.7); Bilirubin, Total 0.4 mg/dL (0.2-1.2); Calc. Creatinine Clearance 0 mL/min (70-130); Calcium 9.2 mg/dL (7.8-10.44); Carbon Dioxide 24 mmol/L (23-31); Chloride 103 mmol/L (98-107); Estimated GFR-MDRD 72; Globulin 3.4 g/dL (2.4-3.5); Glucose 145 mg/dL (80-115); Potassium 4.2 mmol/L (3.5-5.1); Protein, Total 7.4 g/dL (5.8-8.1); Sodium 136 mmol/L (136-145)
[2018-02-06 18:22] LABS: Color Of CSF Supernatant COLORLESS (Colorless); Tube # 2; Unspun CSF Color COLORLESS (Colorless)
[2018-02-06 18:32] LABS: CSF Source CSF; Clarity Clear (Clear); RBC Count - Manual 0 /cumm (None Seen); RBC Count - Manual 13 /cumm (None Seen); Tube # 1; Tube # 4; WBC/NonHematics Count - Manual 0 /cumm (0-5); WBC/NonHematics Count - Manual 1 /cumm (0-5)
[2018-02-06 18:39] LABS: CSF, Glucose 111 mg/dl (40-70); CSF, Protein 63 mg/dL (15-40)
[2018-02-06] MEDS ORDERED: Acetaminophen 500 MG TAB ONE (18:49)
== END 2018-02-06 19:08 | disposition home or self-care (01) ==
LOC: SCSER 15:29
DX: R51 Headache (principal); I25.10 Atherosclerotic heart disease of native coronary artery without angina pectoris; I10 Essential (primary) hypertension; E11.9 Type 2 diabetes mellitus without complications; E78.5 Hyperlipidemia, unspecified; F41.9 Anxiety disorder, unspecified; Z87.891 Personal history of nicotine dependence
CPT/HCPCS: 62270; 70450; 80053; 82945; 84157; 85025; 85730; 89051; 96365; 96375; J1200; J2765

== ENCOUNTER 2021-11-18 19:00 | Outpatient (CLI) | payer MEDICARE | END 2021-11-18 19:01 | disposition home or self-care (01) | LOC: SLEEPLAB 19:00 | PROVIDERS: ATTEND Internal Medicine Critical Care Medicine | DX: G47.33 Obstructive sleep apnea (adult) (pediatric) (principal); R53.83 Other fatigue; R06.83 Snoring; G47.10 Hypersomnia, unspecified; G47.00 Insomnia, unspecified; I25.10 Atherosclerotic heart disease of native coronary artery without angina pectoris; E11.9 Type 2 diabetes mellitus without complications; I10 Essential (primary) hypertension; G47.31 Primary central sleep apnea | CPT/HCPCS: 95810 ==

== ENCOUNTER 2021-12-11 19:00 | Outpatient (CLI) | payer MEDICARE | END 2021-12-11 19:01 | disposition home or self-care (01) | LOC: SLEEPLAB 19:00 | PROVIDERS: ATTEND Internal Medicine Critical Care Medicine | DX: G47.33 Obstructive sleep apnea (adult) (pediatric) (principal); R53.83 Other fatigue; R06.83 Snoring; G47.10 Hypersomnia, unspecified; G47.31 Primary central sleep apnea; R00.9 Unspecified abnormalities of heart beat; E66.9 Obesity, unspecified; Z68.28 Body mass index [BMI] 28.0-28.9, adult | CPT/HCPCS: 95811 ==